=== PATIENT | female | born 2000 | race Hispanic/Latino ===

== ENCOUNTER 2025-05-05 12:45 | Day surgery (SDC) | payer BC, OTHER ==
[2025-05-05 13:08] VITALS: BMI 31.8
[2025-05-05 14:37] LABS: Fetal Membranes Rupture No Membranes Rupture (No Rupture)
== END 2025-05-05 15:11 | disposition home or self-care (01) ==
LOC: CSHLD/OP 12:45
PROVIDERS: ATTEND Student in an Organized Health Care Education/Training Program
DX: O23.593 Infection of other part of genital tract in pregnancy, third trimester (principal); N89.8 Other specified noninflammatory disorders of vagina; Z03.71 Encounter for suspected problem with amniotic cavity and membrane ruled out; Z3A.40 40 weeks gestation of pregnancy; Z79.899 Other long term (current) drug therapy
CPT/HCPCS: 84112; 99284